=== PATIENT | male | born 1980 | race Caucasian/White ===

== ENCOUNTER 2018-03-08 09:47 | Emergency (ER) | payer OTHER ==
[2018-03-08 09:53] VITALS: BP 124/80
[2018-03-08] MEDS ORDERED: Ibuprofen TAB* 400 MG PO ONE (10:04)
--- NOTE | 2018-03-08 10:21 | ED ---
Lower Extremity - HPI Summary HPI Summary: Pt. is a 37 y.o male who presents to the ER for a right shoulder injury that occurred yesterday. Patient states he he was working at [employer] when a large dumpster started sliding down a hill. Patient states he tried to cool dumpster and injured his right shoulder. Patient states pain was minimal yesterday but exacerbated today with movement. No other injuries were sustained. He complains of weakness to right arm but otherwise denies numbness or tingling. Symptoms are mild in severity. - History of Current Complaint Chief Complaint: EDExtremityUpper Stated Complaint: RT SHOULDER PAIN Time Seen by Provider: 03/08/18 09:55 Hx Obtained From: Patient Pain Intensity: 6 - Allergies/Home Medications Allergies/Adverse Reactions: Allergies Allergy/AdvReac Type Severity Reaction Status Date / Time No Known Allergies Allergy Verified 03/08/18 09:53 Home Medications: Home Medications NK [No Home Medications Reported] 03/08/18 [History Confirmed 03/08/18] PMH/Surg Hx/FS Hx/Imm Hx Infectious Disease History: No Infectious Disease History: Denies: Traveled Outside the [place] in Last 30 Days - Family History Known Family History: Positive: Cardiac Disease - Social History Alcohol Use: Weekly Substance Use Type: Reports: None Hx Tobacco Use: Yes Smoking Status (MU): Current Every Day Smoker Review of Systems Positive: Other - Right shoulder pain Positive: Weakness. Negative: Paresthesia, Numbness All Other Systems Reviewed And Are Negative: Yes Physical Exam Triage Information Reviewed: Yes Vital Signs On Initial Exam: Initial Vitals Temp Pulse Resp BP Pulse Ox 98 F 89 17 124/80 98 03/08/18 09:50 03/08/18 09:50 03/08/18 09:50 03/08/18 09:50 03/08/18 09:50 Vital Signs Reviewed: Yes Appearance: Positive: Well-Appearing - Pt. sitting on bed in NAD. Skin: Positive: Warm, Dry Head/Face: Positive: Normal Head/Face Inspection Eyes: Positive: Normal Neck: Positive: Supple Musculoskeletal: Positive: Other - Diffuse pain to palpation of the right shoulder. Limited ROM secondary to pain. Cannot abduct right arm. Arm is neurovascularly intact. Neurological: Positive: Normal, Sensory/Motor Intact, CN Intact II-III Psychiatric: Positive: Normal Diagnostics - Vital Signs Vital Signs Temp Pulse Resp BP Pulse Ox 03/08/18 09:50 98 F 89 17 124/80 98 - Laboratory Lab Statement: Any lab studies that have been ordered have been reviewed, and results considered in the medical decision making process. Lower Extremity Course/Dx - Course Course Of Treatment: Shoulder xray is negative for acute findings, per radiology. Concerned for rotator cuff injury given mechanism of injury and exam. Sling placed for comfort. Advised pt. to use sling intermittently. NSAIDS for pain. To ice and rest shoulder. To schedule an apt. with ortho. for further evaluation. Work excuse given. Pt. understands and agress with plan. - Diagnoses Differential Diagnosis/HQI/PQRI: Positive: Arthritis, Dislocation, Sprain, Strain Provider Diagnoses: Shoulder injury Discharge - Sign-Out/Discharge Documenting (check all that apply): Discharge/Admit/Transfer - Discharge Plan Condition: Good Disposition: HOME Patient Education Materials: Rotator Cuff Injury (ED), Shoulder Sprain (ED) Forms: *Work Release Referrals: No Primary Care Phys,NOPCP [Primary Care Provider] - Yvonne Morrow MD [Medical Doctor] - Additional Instructions: Call the orthopedic clinic to schedule a follow up appointment for further evaluation Ice intermittently Avoid heavy lifting Tylenol or Motrin for pain as directed - Billing Disposition and Condition Condition: GOOD Disposition: HOME
--- NOTE | 2018-03-08 10:27 | RAD ---
Indication: RIGHT shoulder pain following injury yesterday. Comparison: No relevant prior exams available on the [facility] [place]. Technique: 4 views RIGHT shoulder Report: No cortical disruption or suspicious trabecular irregularity to suggest fracture. Normal acromioclavicular and glenohumeral joint alignment. No significant arthropathic change evident. Unremarkable soft tissue contours. IMPRESSION: Negative radiographic exam of the RIGHT shoulder.
== END 2018-03-08 10:45 | disposition home or self-care (01) ==
LOC: ED 09:47
DX: S49.91XA Unspecified injury of right shoulder and upper arm, initial encounter (principal); X50.9XXA Other and unspecified overexertion or strenuous movements or postures, initial encounter; Y93.89 Activity, other specified; Y92.214 College as the place of occurrence of the external cause; Y99.0 Civilian activity done for income or pay; F17.200 Nicotine dependence, unspecified, uncomplicated
CPT/HCPCS: 99282; A9270-GY

== ENCOUNTER 2018-08-07 11:48 | Emergency (ER) | payer OTHER ==
[2018-08-07 12:10] VITALS: BP 133/94
--- NOTE | 2018-08-07 13:21 | UC ---
Throat Pain/Nasal Johnathon HPI - HPI Summary HPI Summary: 38-year-old male comes in with chief complaint of runny nose cough chest congestion. Symptoms been going on for about 3 weeks or getting worse. Several hard time bringing up any sputum. He has been had having wheezing. He is a smoker. He feels fatigued. Symptoms are worse in the evening once he gets up and moves around the chest congestion clears somewhat. - History of Current Complaint Chief Complaint: UCRespiratory Stated Complaint: URI Time Seen by Provider: 08/07/18 13:12 Pain Intensity: 2 - Allergies/Home Medications Allergies/Adverse Reactions: Allergies Allergy/AdvReac Type Severity Reaction Status Date / Time No Known Allergies Allergy Verified 08/07/18 12:10 Home Medications: Home Medications Phenyleph/Acetaminophn/Doxylam [Vicks Sinex Dayquil/Nyqui] 1 mis PO 08/07/18 [ History] PMH/Surg Hx/FS Hx/Imm Hx Previously Healthy: Yes - Surgical History Surgical History: Yes Surgery Procedure, Year, and Place: ankle, finger - Family History Known Family History: Positive: Cardiac Disease - Social History Alcohol Use: Weekly Substance Use Type: None Smoking Status (MU): Heavy Every Day Tobacco Smoker Type: Cigarettes Review of Systems Constitutional: Chills Skin: Negative Eyes: Negative ENT: Sore Throat, Nasal Discharge, Sinus Congestion Respiratory: Shortness Of Breath, Cough Cardiovascular: Negative Gastrointestinal: Negative Motor: Negative Neurovascular: Negative Musculoskeletal: Negative Neurological: Negative Psychological: Negative Is Patient Immunocompromised?: No All Other Systems Reviewed And Are Negative: Yes Physical Exam Triage Information Reviewed: Yes Appearance: No Pain Distress, Well-Nourished, Ill-Appearing - mild Vital Signs: Initial Vital Signs Temp 98.0 F 08/07/18 12:06 Pulse 102 08/07/18 12:06 Resp 18 08/07/18 12:06 BP 133/94 08/07/18 12:06 Pulse Ox 100 08/07/18 12:06 Vital Signs Reviewed: Yes Eye Exam: Normal Eyes: Positive: Conjunctiva Clear ENT: Positive: Pharyngeal erythema, Nasal congestion, Nasal drainage, TMs normal Neck exam: Normal Neck: Positive: Supple Respiratory: Positive: No respiratory distress, Rhonchi Cardiovascular: Positive: RRR Musculoskeletal Exam: Normal Musculoskeletal: Positive: Strength Intact, ROM Intact Neurological Exam: Normal Neurological: Positive: Alert, Muscle Tone Normal Psychological Exam: Normal Psychological: Positive: Age Appropriate Behavior Skin Exam: Normal Throat Pain/Nasal Course/Dx - Differential Dx/Diagnosis Provider Diagnoses: bronchitis with bronchospasm Discharge - Sign-Out/Discharge Documenting (check all that apply): Patient Departure All imaging exams completed and their final reports reviewed: No Studies - Discharge Plan Condition: Stable Disposition: HOME Prescriptions: Albuterol HFA INHALER* [Ventolin HFA Inhaler*] 2 puff INH Q4H PRN #1 mdi PRN Reason: Wheezing Azithromycin TAB* [Zithromax TAB (Z-MARIAELENA) 250 mg #6 tabs] 2 tab PO .TODAY, THEN 1 DAILY #1 [email or web address] Patient Education Materials: Acute Bronchitis (ED), Bronchospasm (ED) [place]errals: [facility] [Outside] Additional Instructions: FOLLOW UP WITH YOUR DOCTOR IF NOT COMPLETELY IMPROVED. GET RECHECKED FOR ANY WORSENING OF YOUR CONDITION OR QUESTIONS OR CONCERNS. - Billing Disposition and Condition Condition: STABLE Disposition: Home
== END 2018-08-07 13:33 | disposition home or self-care (01) ==
LOC: UCEAST 11:48
DX: J20.9 Acute bronchitis, unspecified (principal); F17.210 Nicotine dependence, cigarettes, uncomplicated
CPT/HCPCS: 99212; G0463